=== PATIENT | male | born 1960 | race Caucasian/White ===

== ENCOUNTER 2018-11-12 05:50 | Inpatient (IN) ==
[2018-11-12] MEDS ORDERED: CeFAZolin Syr 2,000MG/20 ML 2,000 MG/20 ML SYRINGE IVPB ONE (06:11)
[2018-11-12] MEDS ORDERED: Ringers Solution, Lactated 1,000 ML IVC SCH (06:15)
[2018-11-12] MEDS ORDERED: Albuterol 2.5 MG/3 ML NEBULIZER IH ONE (06:31)
[2018-11-12] MEDS ORDERED: Albuterol 2.5 MG/3 ML NEBULIZER ONE (06:33)
[2018-11-12] MEDS ORDERED: *HR* Rocuronium Bromide 50 MG/5 ML VIAL ONE ×2 (06:51→10:11)
[2018-11-12] MEDS ORDERED: Lidocaine -MPF 4% 5 ML AMPUL ONE (06:51)
[2018-11-12] MEDS ORDERED: Dexamethasone 4 MG/ML VIAL ONE ×2 (06:51→08:51)
[2018-11-12] MEDS ORDERED: Lidocaine -MPF 2% 2 ML VIAL ONE (06:51)
[2018-11-12] MEDS ORDERED: Ondansetron 4 MG/2 ML VIAL ONE (06:51)
[2018-11-12] MEDS ORDERED: *HR* Propofol 200 MG/20 ML VIAL IVP ONE ×2 (06:52→07:09)
[2018-11-12] MEDS ORDERED: *HR* Midazolam HCl 2 MG/2 ML VIAL ONE (07:01)
[2018-11-12] MEDS ORDERED: *HR* FentaNYL (PF) 100 MCG/2 ML VIAL ONE (07:01)
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
[2018-11-12] MEDS ORDERED: Acetaminophen IV 1,000 MG/100 ML INFUS..BTL IVPB ONE (07:03)
[2018-11-12] MEDS ORDERED: Gabapentin 300 MG CAPSULE PO ONE (07:03)
[2018-11-12] MEDS ORDERED: Famotidine 20 MG/2 ML VIAL IVP ONE (07:03)
[2018-11-12] MEDS ORDERED: Ondansetron 4 MG/2 ML VIAL IVP ONE (07:04)
[2018-11-12] MEDS ORDERED: *HR* Labetalol 20 MG/4 ML SYRINGE IVP PRN (07:04)
[2018-11-12] MEDS ORDERED: *HR* HYDROmorphone (PF) 1 MG/ML SYRINGE IVP PRN ×2 (07:04→17:52)
[2018-11-12] MEDS ORDERED: *HR* OxyCODONE Immed Rel 5 MG TABLET PO PRN ×3 (07:04→18:03)
[2018-11-12] MEDS ORDERED: *HR* Promethazine 25 MG/ML VIAL IVP PRN (07:04)
--- NOTE | 2018-11-12 07:26 | History & Physical Report ---
Date of Encounter: 11/12/18 Time of Encounter: 07:25 24 Hour HP Update - Instructions Instructions: If the History and Physical is less than 30 days old and was completed prior to A.M. admission and or procedure and has NOT been updated on calendar day of procedure please complete this update prior to performing procedure. - Update Patient reports changes in Medical Condition: No Changes in examination, assessment, or condition: No Changes in Medication: No Preop tests/diagnostics Reviewed: Yes Surgery Remains Indicated: Yes Consent for Planned Operative Procedure(s) Verified: Yes - Pre-Operative Checklist Preoperative Checklist Indicated: Yes Prophylactic Antibiotic Ordered: Yes Home Medications Include Beta Balwinder: No Beta Balwinder Taken Today (Day of Surgery): No Beta Balwinder Taken Yesterday (Day Prior to Surgery): No Is VTE Prophylaxis Indicated?: Yes
[2018-11-12] MEDS ORDERED: *HR* HYDROMORPHONE 2 MG/ML VIAL ONE (08:27)
[2018-11-12] MEDS ORDERED: EPHEDrine 50 MG/ML VIAL ONE (08:47)
[2018-11-12] MEDS ORDERED: Water for inj. (sterile) 10 ML IV ONE (08:48)
[2018-11-12] MEDS ORDERED: Mannitol 25% vial 12.5 GM/50 ML VIAL ONE ×2 (10:01→10:02)
[2018-11-12] MEDS ORDERED: Neostigmine Methylsulfate 3 MG/3 ML SYRINGE ONE (10:48)
[2018-11-12] MEDS ORDERED: Naloxone 0.4 MG/ML INJ IVP PRN (11:41)
[2018-11-12] MEDS ORDERED: Ondansetron 4 MG/2 ML VIAL IVP PRN (11:41)
[2018-11-12] MEDS ORDERED: Acetaminophen 325 MG TABLET PO PRN (11:41)
[2018-11-12] MEDS ORDERED: KETAMINE HCL 50 MG/ML SYRINGE IV ONE (12:00)
--- NOTE | 2018-11-12 12:05 | Operative Note ---
Date of procedure: 11/12/18 Pre-op diagnosis: Left renal tumor Post-op diagnosis: same Procedure: Minimally invasive left partial nephrectomy utilizing robotic assistance Implants: Wayne drain Complications: none Anesthesia: GETA Surgeon: Carlos Torres Was there an product development assistant present: Yes Fancy Needleworker: Romina Hdz (No qualified certified surgical technician was available to cover the case.) Estimated blood loss (cc): 350 Specimen: Left renal tumor Condition: stable Disposition: PACU Procedure in Detail: 58-year-old gentleman is referred from the [facility] for finding of enhancing nodule within growing left renal cyst. 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 The patient was brought to the operating theater placed on table in supine position. The patient was identified by name date of and administered a general anesthetic. The patient was placed in right lateral decubitus position with left side up and secured to the bed for the procedure in this position. The patient was prepped and draped in the normal sterile fashion. Pneumoperitoneum was established the Veress needle. Camera port was placed along the ipsilateral border of the rectus at about the level of the tip of rib 11. Adhesions from prior midline surgery were noted. Right left-hand robotic ports were placed under direct vision. For right hand robotic port was placed under direct vision. Adhesions had to be taken down laparoscopically to allow placement of product development assistant 12 mm port. Once the ports were in place labs completed: Was mobilized. The renal hilum was dissected renal artery and vein isolated. Upper pole was mobilized the spleen renal splenophrenic ligaments were taken down sharply to allow retraction of the spleen cephalad. The kidney was defatted exposing the tumor. The tumor was uncomplicated location right at the lip of the hilum with bifurcation of major arterial branches laying against but not entering the tumor. At this point the robot was brought in and docked. The tumor was aspirated with a laparoscopic needle. Once the cyst wall collapsed the nodular component was easily seen through the thin-walled cyst at the tumor base. Bulldog clamps were placed on both artery and vein. We began dissecting and 3, much sharply with the robotic scissors. There is significant oozing from the incision site suggesting poor occlusion of the vasculature. We reinspected the hilum a second arterial clamp was placed the existing venous clamp was adjusted. This adjustment in addition improved hemostasis. The tumor was taken down sharply. Toward the base of the tumor the cyst was entered sharply we readjusted this plane of dissection further out and around the tumor. Grossly this was dissected completely. The tumor sent to pathology for evaluation and margin. Intraoperative pathology consultation revealed tumor consistent with renal cell carcinoma. Margin status could not definitively be assessed from a pathologic perspective given disrupted nature of resection plane though grossly before inking and appeared close but resected. Attention was then turned to closure of the resection defect. The base was run with a 2-0 V-lock suture. Fibrillar was placed in the defect and a second layer was run with 2-0 V-lock suture. The renal artery and main clamps were removed. There was no hemorrhage from the resection bed or closure thereof. The closure was covered with FloSeal. A Wayne drain was placed to the inferior most port. Pneumoperitoneum was relea sed, robot was undocked and the skin incisions were closed with 4-0 Monocryl in subcuticular fashion. Sterile dressings were applied and this ended The procedure.
--- NOTE | 2018-11-12 12:37 | Anesthesia Evaluation Post Op ---
Date of Encounter: 11/12/18 Time of Encounter: 12:30 - Vital Signs Vital Signs: Vital Signs/O2 Sat/Glucose, Most Current Temp Pulse Resp BP Pulse Ox 11/12/18 12:29 98.0 F 51 13 133/80 93 11/12/18 12:19 98.0 F 51 14 131/79 94 11/12/18 12:09 59 12 136/78 94 11/12/18 11:59 53 14 125/72 94 11/12/18 11:49 97.2 F L 54 16 136/77 96 - Lungs Lungs: Clear Ascult./Percussion - Airway Airway: Non-obstructed - Cardiovascular Regular Rate - Mental Status Mental Status: Alert & Oriented, Answers Appropriately - Pain Pain Scale: 0 - Nausea Vomiting Nausea Vomiting: Not Present - Hydration Hydration: Ice chips - Discharge PostOp Status: Transfer Patient to floor
[2018-11-12] MEDS: Ketorolac 15 MG/ML VIAL IVP SCH ×2 (13:14→18:44)
[2018-11-12] MEDS: *HR* HYDROmorphone (PF) 1 MG/ML SYRINGE IVP SCH ×2 (14:27→15:00)
[2018-11-12] MEDS: 0.9 % Sodium Chloride 1,000 ML IVC SCH (14:29)
[2018-11-13] MEDS: 0.9 % Sodium Chloride 1,000 ML IVC SCH (00:18)
[2018-11-13] MEDS: Ketorolac 15 MG/ML VIAL IVP SCH ×2 (00:19→05:14)
[2018-11-13] MEDS: traMADol 50 MG TABLET PO PRN ×2 (03:02→13:18)
[2018-11-13 05:34] LABS: Basophils % 0.2 %; Eosinophils % 0.1 %; Hematocrit 35.6 % (37.5-50.1); Immature Granulocytes % 0.3 % (0-4); Lymphocytes # 1.2 K/mcL (0.6-4.6); Lymphocytes % 11.2 %; Mean Corpuscular HGB Conc 33.4 g/dL (31.6-35.5); Mean Corpuscular Hemoglobin 30.1 pg (28.0-33.3); Mean Corpuscular Volume 89.9 fL (83.0-100.0); Mean Platelet Volume 10.1 fL (9.4-12.4); Monocytes # 1.2 K/mcL (0.0-1.3); Monocytes % 11.4 %; Neutrophils # 8.4 K/mcL (1.6-8.9); Platelet Count 217 K/mcL (140-400); Red Blood Count 3.96 M/mcL (4.19-5.50); Red Cell Distribution Width 13.4 % (11.5-14.5); Segmented Neutrophils % 76.8 %
[2018-11-13 05:35] LABS: Hemoglobin 11.9 g/dL (12.9-16.9)
[2018-11-13 05:56] LABS: BUN/Creatinine Ratio 24 (6-26); Blood Urea Nitrogen 24 mg/dL (6-20); Calcium 8.2 mg/dL (8.6-10.3); Carbon Dioxide 23 mEq/L (23-29); Chloride 106 mEq/L (98-107); Glucose 112 mg/dL (70-105); Osmolality,Calculated 283 (280-300); Potassium 4.2 mEq/L (3.5-5.1); Sodium 134 mEq/L (136-145); eGFR For Non-African Americans > 60 (> 60)
[2018-11-13 05:57] LABS: eGFR For Non-African Americans > 60 (> 60)
--- NOTE | 2018-11-13 09:22 | Urology Progress Note ---
<Romina Hdz N - Last Filed: 11/13/18 09:20> Date of Encounter: 11/13/18 Time of Encounter: 09:00 - Assessment and Plan (1) Left renal mass Current Visit: Yes Status: Acute Assessment and plan: Patient is a 58-year-old male who presents with a left renal mass. Patient is one day status post minimally invasive left partial nephrectomy utilizing robotic assistance. Vital signs are stable and afebrile. Discussed postoperative expectations and restrictions with patient and his . Patient and his both verbalized understanding. Discussed postoperative goals of voiding without difficulty, tolerating a normal diet, ambulating without assistance, and maintaining adequate pain control with oral pain medication. We will consider discharge if patient is able to meet these goals. Progress Note Subjective: feels better Narrative: POD #1. Patient seen and examined sitting upright in bed eating breakfast in no apparent distress. Hernandez catheter has been discontinued, but patient has not voided yet. Patient is tolerating a full liquid diet without nausea or vomiting. Patient states pain is well-controlled. Patient has not passed flatus yet. Objective Initial Vital Signs Temp Pulse Resp BP Pulse Ox 98.1 F 51 18 134/79 94 11/12/18 06:12 11/12/18 06:12 11/12/18 06:12 11/12/18 06:12 11/12/18 06:12 - General physical appearance Present: well developed, no distress, no pain - Respiratory Present: normal expansion, normal respiratory effort - Abdomen Present: soft, non tender, wound (Primary dressings are clean, dry, intact. 19- Luxembourg[place] Wayne drain in place and draining scant amount of bloody fluid ) - Integumentary Present: no rash, no abnormal pigmentation - Musculoskeletal Present: normal posture - Psychiatric Present: oriented to time, oriented to person, oriented to place, speech is normal, memory intact - Labs 11/13/18 04:28 11/13/18 04:28 Diabetes panel 11/13/18 11/13/18 Range/Units 04:28 04:28 Sodium 134 L (136-145) mEq/L Potassium 4.2 (3.5-5.1) mEq/L Chloride 106 (98-107) mEq/L Carbon Dioxide 23 (23-29) mEq/L BUN 24 H (6-20) mg/dL Creatinine 0.97 0.99 (0.70-1.30) mg/dL Glucose 112 H (70-105) mg/dL Calcium 8.2 L (8.6-10.3) mg/dL Calcium panel 11/13/18 Range/Units 04:28 Calcium 8.2 L (8.6-10.3) mg/dL Pituitary panel 11/13/18 11/13/18 Range/Units 04:28 04:28 Sodium 134 L (136-145) mEq/L Potassium 4.2 (3.5-5.1) mEq/L Chloride 106 (98-107) mEq/L Carbon Dioxide 23 (23-29) mEq/L BUN 24 H (6-20) mg/dL Creatinine 0.97 0.99 (0.70-1.30) mg/dL Glucose 112 H (70-105) mg/dL Calcium 8.2 L (8.6-10.3) mg/dL Adrenal panel 11/13/18 11/13/18 Range/Units 04:28 04:28 Sodium 134 L (136-145) mEq/L Potassium 4.2 (3.5-5.1) mEq/L Chloride 106 (98-107) mEq/L Carbon Dioxide 23 (23-29) mEq/L BUN 24 H (6-20) mg/dL Creatinine 0.97 0.99 (0.70-1.30) mg/dL Glucose 112 H (70-105) mg/dL Calcium 8.2 L (8.6-10.3) mg/dL Consult Discharge Plan - Plan Instructions: Nephrectomy (DC), Laparoscopic Partial Nephrectomy (DC) Additional Instructions: Call if fever greater than 101 degrees. Call if incision sites are red, warm, or begin to drain excessively. Okay to shower. No tub baths, swimming, or hot tubs. No lifting greater than 20 pounds or heavy activity. Okay to drive as long as you are no longer taking narcotic pain medicine. Referrals: Carlos Torres [Partnered Physician] - 11/20/18 9:00 am Prescriptions: Ciprofloxacin HCl [Cipro] 250 mg PO BID #6 tab Docusate [Colace] 100 mg PO BID #30 capsule Oxycodone HCl/Acetaminophen [Percocet 5-325 mg Tablet] 1 each PO Q6H PRN 5 Days #20 tablet PRN Reason: Severe Pain <Carlos Torres Jay - Last Filed: 11/13/18 13:04> Date of Encounter: 11/13/18 - Assessment and Plan (1) Left renal mass Current Visit: Yes Status: Acute Assessment and plan: Patient seen and examined independently. I am in agreement with the assessment and plan as outlined by our Urologic Surgery Department Physician Commissioning Agent, Wilder. Reviewed intraoperative surgical findings and preliminary pathology with patient and family in room today. Reviewed home-going instructions. Patient will follow-up with me in 1 week's time. Objective Initial Vital Signs Temp Pulse Resp BP Pulse Ox 98.1 F 51 18 134/79 94 11/12/18 06:12 11/12/18 06:12 11/12/18 06:12 11/12/18 06:12 11/12/18 06:12 - Labs 11/13/18 04:28 11/13/18 04:28 Diabetes panel 11/13/18 11/13/18 Range/Units 04:28 04:28 Sodium 134 L (136-145) mEq/L Potassium 4.2 (3.5-5.1) mEq/L Chloride 106 (98-107) mEq/L Carbon Dioxide 23 (23-29) mEq/L BUN 24 H (6-20) mg/dL Creatinine 0.97 0.99 (0.70-1.30) mg/dL Glucose 112 H (70-105) mg/dL Calcium 8.2 L (8.6-10.3) mg/dL Calcium panel 11/13/18 Range/Units 04:28 Calcium 8.2 L (8.6-10.3) mg/dL Pituitary panel 11/13/18 11/13/18 Range/Units 04:28 04:28 Sodium 134 L (136-145) mEq/L Potassium 4.2 (3.5-5.1) mEq/L Chloride 106 (98-107) mEq/L Carbon Dioxide 23 (23-29) mEq/L BUN 24 H (6-20) mg/dL Creatinine 0.97 0.99 (0.70-1.30) mg/dL Glucose 112 H (70-105) mg/dL Calcium 8.2 L (8.6-10.3) mg/dL Adrenal panel 11/13/18 11/13/18 Range/Units 04:28 04:28 Sodium 134 L (136-145) mEq/L Potassium 4.2 (3.5-5.1) mEq/L Chloride 106 (98-107) mEq/L Carbon Dioxide 23 (23-29) mEq/L BUN 24 H (6-20) mg/dL Creatinine 0.97 0.99 (0.70-1.30) mg/dL Glucose 112 H (70-105) mg/dL Calcium 8.2 L (8.6-10.3) mg/dL
[2018-11-13 10:18] VITALS: BP 143/83
--- NOTE | 2018-11-13 11:02 | Discharge Summary ---
Orders not resulted at time of discharge: Pending orders 11/12/18 10:46 Surgical Pathology [PTH] Stat Date of Encounter: 11/13/18 Time of Encounter: 11:02 - Discharge Diagnosis (1) Left renal mass Priority: Primary Status: Acute - Hospital Course Hospital course: Mr. Juares is a 58 year old male who presents with a history of a left renal mass. On 11/12/2018, patient was taken to the operating room where he underwent a minimally invasive left partial nephrectomy with robotic assistance. There were no surgical complications, and the patient tolerated the procedure well. Postoperative course was relatively unremarkable, and he was dismissed in satisfactory condition. Hernandez catheter and 19-Barb[place] Wayne drain were both removed on postoperative day 1 without difficulty. Postoperative expectations, restrictions, activity and follow-up were discussed with patient, and patient verbalized understanding. Time spent discussing smoking cessation with patient: 3 to 10 minutes - Time Spent with Patient Total time spent providing and/or coordinating discharge services: Less than 30 minutes Procedures and tests throughout hospitalization: Minimally invasive left partial nephrectomy utilizing robotic assistance Labs on day of discharge: Labs from last 24 hours 11/13/18 11/13/18 11/13/18 04:28 04:28 04:28 WBC 10.9 RBC 3.96 L Hgb 11.9 L D Hct 35.6 L MCV 89.9 MCH 30.1 MCHC 33.4 RDW 13.4 Plt Count 217 MPV 10.1 Immature Gran % 0.3 Seg Neutrophils % 76.8 Lymphocytes % 11.2 Monocytes % 11.4 Eosinophils % 0.1 Basophils % 0.2 Neutrophils # 8.4 Lymphocytes # 1.2 Monocytes # 1.2 Eosinophils # 0.0 Basophils # 0.0 Sodium 134 L Potassium 4.2 Chloride 106 Carbon Dioxide 23 BUN 24 H Creatinine 0.99 0.97 Est GFR ( Amer) > 60 > 60 Est GFR (Non-Af Amer) > 60 > 60 BUN/Creatinine Ratio 24 Glucose 112 H Calculated Osmolality 283 Calcium 8.2 L - Discharge Medications Prescriptions: Ciprofloxacin HCl [Cipro] 250 mg PO BID #6 tab Docusate [Colace] 100 mg PO BID #30 capsule Oxycodone HCl/Acetaminophen [Percocet 5-325 mg Tablet] 1 each PO Q6H PRN 5 Days #20 tablet PRN Reason: Severe Pain Home Medications: Acetaminophen [Tylenol] 650 mg PO 2-3XD PRN 11/12/18 [History] Amlodipine Besylate 7.5 mg PO DAILY 11/12/18 [History] Aspirin [Lo-Dose Aspirin EC] 81 mg PO DAILY 11/12/18 [History] Losartan Potassium [Cozaar] 100 mg PO DAILY 11/12/18 [History] hydroCHLOROthiazide [Hydrochlorothiazide] 25 mg PO DAILY 11/12/18 [History] Ciprofloxacin HCl [Cipro] 250 mg PO BID #6 tab 11/13/18 [Rx] Docusate [Colace] 100 mg PO BID #30 capsule 11/13/18 [Rx] Oxycodone HCl/Acetaminophen [Percocet 5-325 mg Tablet] 1 each PO Q6H PRN 5 Days #20 tablet 11/13/18 [Rx] Allergies/Adverse Reactions: Allergy/AdvReac Type Severity Reaction Status Date / Time Erythromycin Base Allergy Rash Verified 11/12/18 07:41 lisinopril Allergy Cough Verified 11/12/18 07:41 Date of admission: 11/12/18 13:04 Primary care physician: [facility] Discharging clinician: Romina Hdz Anticipated date of discharge: 11/13/18 Exam Initial Vital Signs Temp Pulse Resp BP Pulse Ox 98.1 F 51 18 134/79 94 11/12/18 06:12 11/12/18 06:12 11/12/18 06:12 11/12/18 06:12 11/12/18 06:12 - General physical appearance Present: well developed, no distress, no pain - Eyes Present: PERRL, normal ocular movement - ENT Present: normal nares, no hearing loss, no congestion - Neck Present: no masses, trachea midline - Respiratory Present: normal respiratory effort - Abdomen Abdomen: Present: soft, non tender, wound (primary incisions clean, dry, intact ) - Integumentary Present: no rash, no abnormal pigmentation - Neurologic Present: normal coordination - Musculoskeletal Present: other (normal posture ) - Patient Status Disposition: Home, Self-Care Condition: Good Functional capacity at discharge: independent ambulation Overall status at discharge: patient is progressing back to baseline - Discharge Instructions Follow Up With: Carlos Torres [Partnered Physician] - [facility] [Primary Care Provider] - Additional Instructions: Call if fever greater than 101 degrees. Call if incision sites are red, warm, or begin to drain excessively. Okay to shower. No tub baths, swimming, or hot tubs. No lifting greater than 20 pounds or heavy activity. Okay to drive as long as you are no longer taking narcotic pain medicine. - Diet and Activity Activity: increase activity as tolerated Diet: advance to your usual diet
== END 2018-11-13 14:06 | disposition home or self-care (01) | DRG 658 ==
LOC: SAMDAY 05:50 → 3ANU 13:04
PROVIDERS: ADMIT Urology; ATTEND Urology